=== PATIENT | male | born 2000 | race Two or more races ===

== ENCOUNTER 2024-03-05 21:43 | Emergency (ER) | payer OTHER, BC ==
[2024-03-05] MEDS ORDERED: Midazolam 1 MG/ML 2 ML SDV IV ONE (21:44)
[2024-03-05] MEDS ORDERED: fentaNYL 100 MCG/2 ML SDV IV ONE (21:44)
[2024-03-05 22:54] LABS: BASOPHILS PERCENT AUTO 0.5 % (0.3-3.8); EOSINOPHILS ABSOLUTE AUTO 0.5 x10-3/uL (0.0-0.6); EOSINOPHILS PERCENT AUTO 5.4 % (0.1-6.8); HEMATOCRIT 38.2 % (38.3-50.1); HEMOGLOBIN 11.9 g/dL (12.9-17.7); LYMPHOCYTES ABSOLUTE AUTO 2.4 x10-3/uL (0.5-4.5); MEAN CORPUSCULAR HEMOGLOBIN 20.6 pg (27.0-33.3); MEAN CORPUSCULAR HGB CONC 31.2 g/dL (28.7-35.3); MEAN PLATELET VOLUME 9.1 fL (6.7-11.0); MONOCYTES ABSOLUTE AUTO 0.8 x10-3/uL (0.0-1.2); MONOCYTES PERCENT AUTO 7.8 % (5.5-15.2); NEUTROPHILS ABSOLUTE AUTO 6.2 x10-3/uL (1.7-6.9); NEUTROPHILS PERCENT AUTO 62.3 % (40.3-71.8); PLATELET COUNT,PLT 261 x10(3)uL (117-477); RED CELL DISTRIBUTION WIDTH 14.3 % (12.4-15.0); WHITE BLOOD CELL COUNT,WBC 9.9 x10-3/uL (3.2-10.1)
[2024-03-05 22:57] LABS: BLOOD UREA NITROGEN,BUN 26 mg/dL (7-18); BUN/CREATININE RATIO 32.5 (9-20); CALCIUM 8.6 mg/dL (8.6-10.2); CARBON DIOXIDE,CO2 28 mmol/L (21-32); CHLORIDE,CL 102 mmol/L (100-110); CREATININE 0.8 mg/dL (0.70-1.30); EST CRCL DRUG DOSING (CG) 138.94 mL/min; ESTIMATED GFR 128 mL/min (>60); GLUCOSE RANDOM 135 mg/dL (80-116); POTASSIUM,K 3.5 mmol/L (3.5-5.3); SODIUM,NA 139 mmol/L (135-145)
[2024-03-05 23:03] LABS: A/G RATIO 0.9; ALANINE AMINOTRANSFERASE,ALT 88 U/L (12-36); ALBUMIN 3.4 g/dL (3.5-5.2); ALKALINE PHOSPHATASE 84 IU/L (56-112); ASPARTATE AMNIOTRANSFERASE,AST 112 IU/L (5-25); BILIRUBIN TOTAL 0.3 mg/dL (0.1-1.3); PROTEIN TOTAL,TP 7.2 g/dL (6.0-8.0)
[2024-03-05 23:05] LABS: RED BLOOD CELL COUNT 5.79 x10(6)uL (3.90-5.90)
[2024-03-05 23:11] LABS: INR 1.01 (1.00-1.24); PROTHROMBIN TIME 10.5 sec (9.0-11.1)
[2024-03-06 00:52] VITALS: BP 138/73; PULSE 83
== END 2024-03-06 | disposition other institution (70) ==
LOC: FB.ED 21:43
DX: S22.41XA Multiple fractures of ribs, right side, initial encounter for closed fracture (principal); S27.0XXA Traumatic pneumothorax, initial encounter; V49.40XA Driver injured in collision with unspecified motor vehicles in traffic accident, initial encounter; Y93.89 Activity, other specified
CPT/HCPCS: 36415; 70450; 71045; 71250; 72125; 74176; 80053; 85025; 85610; 99285; J2250; J3010